=== PATIENT | male | born 1985 | race Caucasian/White ===

== ENCOUNTER 2020-04-07 08:24 | Outpatient (CLI) | payer BC, SELFPAY ==
--- NOTE | 2020-04-07 08:55 | EST_ITS ---
Patient Info Name: Federico Hernandez Age: 34 years : 1985 Gender: Male Ht: 70 in Wt: 250 lbs BSA: 2.41 m2 HR: 69 bpm BP: 128 / 88 mmHg Heart Rhythm: Sinus Rhythm Exam Date: 04/07/2020 9:28 AM Exam Location: [facility] Patient Status: Outpatient Admit Date: 04/07/2020 Staff Ordering Physician: Kevin Carpenter PA-C Battery Mechanic: Ana Mcclain RDCS Attending Provider: BRENT ISLAS DO Referring Physician: Pauline SOLIS; Exercise Technologist: Sana Lu RDCS Exercise Physician: Brent Islas DO Exam Type: CA stress echo Study Info Indications R07.9 - Chest pain, unspecified Treadmill exercise stress echocardiogram is performed. Summary 1. 1. Negative Jason exercise stress test for ischemic ST changes by ECG criteria. 2. 2. Good functional capacity, achieving 12 METs of workload. 3. 3. Appropriate HR response to exercise. 4. 4. Appropriate HR recovery at 1 minute post exercise. 5. 5. Negative stress echocardiogram for ischemia by wall motion analysis. 6. 6. Patient informed of the above results. Stress Echo Findings Left Ventricle Appropriate increase in LV endocardial thickening with systole. Appropriate augmentation of contractility with systole. No wall motion abnormality. Left Ventricle Normal LV systolic function, no wall motion abnormality. Protocol: Jason Stress ECG Details Stage: REST Duration (min): 0 min : 46 sec Speed (mph): 0.0 Grade (%): 0 HR (bpm): 69 SBP (mmHg): 128 DBP (mmHg): 88 METS: --- Stage: REST Duration (min): 11 min : 13 sec Speed (mph): 0.0 Grade (%): 0 HR (bpm): 79 SBP (mmHg): 128 DBP (mmHg): 88 METS: --- Stage: STAGE 1 Duration (min): 1 min : 0 sec Speed (mph): 1.7 Grade (%): 10 HR (bpm): 110 SBP (mmHg): 128 DBP (mmHg): 88 METS: --- Stage: STAGE 1 Duration (min): 2 min : 0 sec Speed (mph): 1.7 Grade (%): 10 HR (bpm): 115 SBP (mmHg): 128 DBP (mmHg): 88 METS: --- Stage: STAGE 1 Duration (min): 3 min : 0 sec Speed (mph): 1.7 Grade (%): 10 HR (bpm): 112 SBP (mmHg): 152 DBP (mmHg): 100 METS: --- Stage: STAGE 2 Duration (min): 1 min : 0 sec Speed (mph): 2.5 Grade (%): 12 HR (bpm): 136 SBP (mmHg): 141 DBP (mmHg): 98 METS: --- Stage: STAGE 2 Duration (min): 2 min : 0 sec Speed (mph): 2.5 Grade (%): 12 HR (bpm): 142 SBP (mmHg): 150 DBP (mmHg): 94 METS: --- Stage: STAGE 2 Duration (min): 3 min : 0 sec Speed (mph): 2.5 Grade (%): 12 HR (bpm): 145 SBP (mmHg): 150 DBP (mmHg): 94 METS: --- Stage: STAGE 3 Duration (min): 1 min : 0 sec Speed (mph): 3.4 Grade (%): 14 HR (bpm): 156 SBP (mmHg): 183 DBP (mmHg): 85 METS: --- Stage: STAGE 3 Duration (min): 2 min : 0 sec Speed (mph): 3.4 Grade (%): 14 HR (bpm): 162 SBP (mmHg): 183 DBP (mmHg): 85 METS: --- Stage: STAGE 3
== END 2020-04-07 08:25 | disposition home or self-care (01) ==
PROVIDERS: Visit Provider Physician Assistant
DX: R07.89 Other chest pain (principal)
CPT/HCPCS: 93351